=== PATIENT | female | born 1995 | race Caucasian/White ===

== ENCOUNTER 2017-06-08 13:01 | Emergency (ER) | payer BC ==
[2017-06-08 15:31] VITALS: BP 119/70
--- NOTE | 2017-06-08 15:54 | UC ---
FLU HPI - HPI Summary HPI Summary: Pt states since this am sore throat, headache and body aches. Pt reports chills and feeling warm. No nausea, vomiting. Pt took mucinex and Tracy seltzer with little relieft at 10am + sick contacts - goes to [facility] no rash NO vision changes No n/v/d Pt's medications reviewed this visit - History of Current Complaint Chief Complaint: UCGeneralIllness Stated Complaint: HEADACHE, SORE THROAT, CONGESTION Time Seen by Provider: 06/08/17 15:53 Hx Obtained From: Patient Hx Last Menstrual Period: 06/01/17 ?: No Onset/Duration: Sudden Onset Severity Currently: Mild Severity Initially: Moderate Pain Intensity: 5 Pain Scale Used: 0-10 Numeric Associated Signs & Symptoms: Positive: Fever, Myalgia, Cough, Sore Throat, Nasal Congestion, Headache Related Hx: Possible Flu/Infectious Exposure - Risk Factors Influenza Risk Factors: Negative - Allergy/Home Medications Allergies/Adverse Reactions: Allergies Allergy/AdvReac Type Severity Reaction Status Date / Time No Known Allergies Allergy Verified 06/08/17 15:31 Home Medications: Home Medications Dm/PE/Acetaminophen/Chlorphenr [Tracy-[place] Plus Cld-Cough Cp] 1 each PO DAILY 06/08/17 [History Confirmed 06/08/17] PMH/Surg Hx/FS Hx/Imm Hx Previously Healthy: Yes - Surgical History Surgical History: None - Social History Occupation: Student Lives: With Family Alcohol Use: None Substance Use Type: None Smoking Status (MU): Never Smoked Tobacco Review of Systems Constitutional: Fever, Chills, Fatigue Skin: Negative Eyes: Negative ENT: Sore Throat, Nasal Discharge, Sinus Congestion, Sinus Pain/Tenderness Respiratory: Cough Cardiovascular: Negative Gastrointestinal: Negative Genitourinary: Negative Motor: Negative Neurovascular: Negative Musculoskeletal: Negative Neurological: Negative Psychological: Negative All Other Systems Reviewed And Are Negative: Yes Physical Exam Triage Information Reviewed: Yes Appearance: No Pain Distress, Well-Nourished, Other: - tierd appearing Vital Signs: Initial Vital Signs Temp 99.7 F 06/08/17 15:28 Pulse 94 06/08/17 15:28 Resp 16 06/08/17 15:28 BP 119/70 06/08/17 15:28 Pulse Ox 100 06/08/17 15:28 Vital Signs Reviewed: Yes Eye Exam: Normal Eyes: Positive: Conjunctiva Clear ENT: Positive: Pharyngeal erythema, Nasal congestion, Uvula midline. Negative: Tonsillar swelling, Tonsillar exudate, Sinus tenderness Dental Exam: Normal Neck exam: Normal Neck: Positive: Supple, Nontender, No Lymphadenopathy Respiratory Exam: Normal Respiratory: Positive: Chest non-tender, Lungs clear, Normal breath sounds, No respiratory distress, No accessory muscle use Cardiovascular Exam: Normal Cardiovascular: Positive: RRR, No Murmur Abdominal Exam: Normal Abdomen Description: Positive: Nontender, No Organomegaly Bowel Sounds: Positive: Present Musculoskeletal Exam: Normal Neurological Exam: Normal Psychological Exam: Normal Skin Exam: Normal Flu Course/Dx - Course Course Of Treatment: Pt presents with sore throat, body aches, headache since this morning. PT had taken Tracy [place] x 1 with little relief. + flu contact. Pt withcongestion and erythema oropharynx on exam. will check flu. motrin. strep. reassess - Differential Dx/Diagnosis Provider Diagnoses: viral syndrome Discharge - Discharge Plan Condition: Stable Disposition: HOME Prescriptions: Oseltamivir CAP* [Tamiflu CAP*] 75 mg PO DAILY #10 cap Patient Education Materials: Viral Syndrome (ED) Forms: *Gen. Provider Communication, *School Release Referrals: [facility] [Outside] Non Staff,Doctor [Primary Care Provider] - Additional Instructions: - Stay well hydrated. Drink plenty of non-alcoholic, non-caffinated beverages. - Alternate ibuprofen (Advil, Motrin) 600mg and Tylenol every 3 hours for pain or fever. Take with food. Do NOT take for more than 4-5 days. - These infections are spread by secretions - do NOT share eating or drinking utensils - clean items you share with other people such as cell phones, computer mouse, TV remote, computer tablets, etc. After you have taken Tamiflu , change your toothbrush and your pillowcase. - get plenty of restful sleep - humidify the air in the room where you sleep - boil water, run a hot steam shower, vaporizer, cups of water by heat register - okay to take over the counter decongestant and cough medication - get plenty of restful sleep. - contact your doctor, student health, or return with questions or concerns
[2017-06-08] MEDS ORDERED: Ibuprofen TAB* 200 MG PO ONE (16:00)
== END 2017-06-08 16:41 | disposition home or self-care (01) ==
LOC: UCCORT 13:01
DX: B34.9 Viral infection, unspecified (principal)
CPT/HCPCS: 87502; 87651; 99202; A9270-GY; G0463